=== PATIENT | male | born 1940 | race Caucasian/White ===

== ENCOUNTER → 2016-09-20 | Day surgery (SDC) | payer MEDICARE, BC, OTHER | LOC: MSO 09:43 | DX: H25.11 Age-related nuclear cataract, right eye (principal); I10 Essential (primary) hypertension; F17.290 Nicotine dependence, other tobacco product, uncomplicated; Z95.5 Presence of coronary angioplasty implant and graft; Z85.46 Personal history of malignant neoplasm of prostate | CPT/HCPCS: 00142; A9270-GY; J0171; J2550; V2632; V2797 ==

== ENCOUNTER → 2016-10-18 | Day surgery (SDC) | payer MEDICARE, BC, OTHER | LOC: MSO 07:13 | DX: H25.12 Age-related nuclear cataract, left eye (principal); Z88.1 Allergy status to other antibiotic agents; I10 Essential (primary) hypertension; F17.290 Nicotine dependence, other tobacco product, uncomplicated | CPT/HCPCS: 00142; A9270-GY; J0171; J2550; J3010; V2632; V2797 ==